=== PATIENT | male | born 1985 ===

== ENCOUNTER 2023-11-22 11:44 | Outpatient (REF) | payer OTHER, SELFPAY ==
[2023-11-22 13:42] LABS: Estimated Average Glucose 123 mg/dL; Hemoglobin A1c % 5.9 % (<6.0)
[2023-11-22 13:58] LABS: Alanine Aminotransferase 21 U/L (0-40); Albumin Level 4.1 g/dL (3.5-5.0); Alkaline Phosphatase 55 U/L (39-117); Anion Gap 12 (12-20); Aspartate Amino Transferase 19 U/L (5-37); Bilirubin Direct 0.2 mg/dL (0.0-0.5); Bilirubin Total 0.4 mg/dL (0.0-1.0); Blood Urea Nitrogen 10 mg/dL (9-16); Calcium 8.9 mg/dL (8.4-10.2); Carbon Dioxide 23 mmol/L (22-29); Chloride 108 mmol/L (96-108); Cholesterol 205 mg/dL (<200); Estimated Glomerular Filt Rate > 60; Glucose Random 87 mg/dL (60-115); HDL Cholesterol 45 mg/dL (>40); LDL Cholesterol Calculated 123 mg/dL (<100); Potassium 4.2 mmol/L (3.3-5.1); Sodium 139 mmol/L (135-145); Total Protein 7.4 g/dL (6.5-8.0); Triglycerides 189 mg/dL (<150)
[2023-11-23 04:26] LABS: HBS Num1 17.51 mIU/mL (0-7.99); HIV AB/AG Nonreactive (Nonreactive); HIV Num 1 0.05 S/CO (0.00-0.99); ~Hepatitis B Surface Antibody REACTIVE (Nonreactive)
[2023-11-23 12:44] LABS: RPR Rapid Plasma Reagin REACTIVE (NON-REACTIVE)
== END 2023-11-22 11:45 | disposition home or self-care (01) ==
LOC: HO.HHCL 11:44
PROVIDERS: Visit Provider Nurse Practitioner Primary Care
DX: Z00.00 Encounter for general adult medical examination without abnormal findings (principal); F64.9 Gender identity disorder, unspecified; R73.03 Prediabetes; Z20.2 Contact with and (suspected) exposure to infections with a predominantly sexual mode of transmission; Z13.6 Encounter for screening for cardiovascular disorders
CPT/HCPCS: 36415; 80048; 80061; 80076; 83036; 86592; 86593; 86706; 87389

== ENCOUNTER 2025-02-11 11:36 | Outpatient (REF) | payer OTHER, SELFPAY ==
[2025-02-12 13:54] LABS: CT PCR NOT DETECTED (Not Detect.); NG PCR NOT DETECTED (Not Detect.)
[2025-02-13 14:04] LABS: C. Trachomatis RNA TMA, Throat NOT DETECTED (NOT DETECTED); N. gonorrhoeae RNA TMA, Throat NOT DETECTED (NOT DETECTED)
[2025-02-13 17:39] LABS: C.Trachomatis RNA TMA, Rectal NOT DETECTED (NOT DETECTED); N.Gonorrhoeae RNA TMA, Rectal NOT DETECTED (NOT DETECTED)
== END 2025-02-11 11:37 | disposition home or self-care (01) ==
LOC: HO.HHCLNP 11:36
PROVIDERS: Visit Provider Nurse Practitioner Primary Care
DX: Z20.2 Contact with and (suspected) exposure to infections with a predominantly sexual mode of transmission (principal)
CPT/HCPCS: 87491; 87591

== ENCOUNTER 2025-05-15 12:01 | Outpatient (REF) | payer OTHER, SELFPAY ==
--- OUTSIDE RECORDS SUMMARY | 2025-05-15 11:00 | XMS_ITS | Encounter Summary ---
Author Organization [email or web address] Address [address] [facility] [address] [facility] [address] [place] [address] Care Team Providers Care Director Human Services Name Role Phone Mahogany Medrano KENDRA Primary Care Provider [phone] Reason for Visit * Reason Comments Headache Encounter Details Date Type Department Care Team (Latest Contact Info) Description 05/15/2025 11:00 AM EDT Office Visit [facility] [address] [place] [address] Carlos Herrera MD [address] [place] [address] Nonintractable headache, unspecified chronicity pattern, unspecified headache type (Primary Dx) Social History Tobacco Use Types Packs/Day Years Used Date Smoking Tobacco: Former Cigarettes Passive Smoke Exposure: Current Smokeless Tobacco: Never Tobacco Cessation:Counseling Given: Not Answered Alcohol Use Standard Drinks/Week Comments Never 0 (1 standard drink = 0.6 oz pur e alcohol) Depression Answer Date Recorded Patient Health Questionnaire-9 Score 7 08/23/2023 Patient Health Questionnaire-9 Score 7 08/23/2023 Last PHQ-9: Questionnaire Data Not on file 1 10/24/2022 Housing Stability Answer Date Recorded What is your housing situation today? I have jordan vann 02/04/[address] you li ve. Do you have problems with any of the following? None of the above 02/04/2025 Food Insecurity Answer Date Recorded Within the past 12 months, y ou worried that your food would run out before you got money to buy more: Never True 02/04/2025 Within the past 12 months,th e food you bought just didn't last and you didn't have enough money to get more: Never True Transportation Answer Date Recorded In the past 12 months, has l ack of transportation kept you from medical appts, meetings, work or from getting things needed for daily living? No 02/04/2025 Utilities Answer Date Recorded In the past 12 months, has t he electric, gas, oil or water company threatened to shut off services in your home? No 02/04/2025 Depression Answer Date Recorded Patient Health Questionnaire-2 Score 4 08/23/2023 Internet Access Answer Date Recorded Internet Access Q1 Yes 02/04/2025 Internet Access Q2 Not on file 02/04/2025 Sex and Gender Information Value Date Recorded Sex Assigned at Male 07/10/2022 10:40 AM EDT Legal Sex Female 10:40 AM EDT Gender Identity Transgender Female 07/10/2022 10 :40 AM EDT Sexual Orientation Choose not to disclose 2021 10:40 AM EDT documented as of this encounter Last Filed Vital Signs Vital Sign Reading Time Taken Comments Blood Pressure 107/72 05/15/2025 10:56 AM EDT Pulse 65 05/15/2025 10:56 AM EDT Temperature 36.7 C (98 F) 05/15/2025 10:56 AM EDT Respiratory Rate 18 05/15/2025 10:56 AM EDT Oxygen Saturation 99% 05/15/2025 10:56 AM EDT Inhaled Oxygen Concentration - - Weight 99.3 kg (219 lb) 05/15/2025 10:56 AM EDT Height - - Body Mass Index 34.3 02/11/2025 3:56 PM EDT documented in this encounter Progress Notes * Carlos Herrera MD - 05/15/2025 11:00 AM EDT Subjective History was provided by the patient. Radha Carpenter is a 40 y.o. transgender female who presents for evaluation of bitemporal VELASQUEZ, photophobia and phonophobia since yesterday. Symptom onset was about 18 hours ago. VELASQUEZ has been waxing and waning. Was able to get about 8 hours of sleep last night. Denies F/C/N/V/D. 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 States bright light is bothersome. Currently using a vape product, but intends to quit. Denies any new medications. Denies any recent travel or unusual activity change. She stoppedtaking her Estradiol few months ago due to increased appetite. Had been on this medication for manyyears. Wanted to see if her appetite would change. Currently has an upcoming appointment with PCP next week. She reports an unusual symptom of epigastric tenderness when she walks on her heels. Symptom is alleviated when she tip-toe walks. Objective Vitals: 05/15/25 1056 BP: 107/72 BP Location: Right arm Patient Position: Sitting BP Cuff Size: Adult Pulse: 65 Resp: 18 Temp: 98 ??F (36.7 ??C) TempSrc: Temporal SpO2: 99% Weight: 219 lb (99.3 kg) Physical Exam Vitals reviewed. Constitutional: General: She is not in acute distress. Appearance: Normal appearance. She is not ill-appearing, toxic-appearing or diaphoretic. HENT: Head: Normocephalic and atraumatic. Right Ear: External ear normal. Left Ear: External ear normal. Nose: Nose normal. Mouth/Throat: Mouth: Mucous membranes are moist. Pharynx: Oropharynx is clear. Eyes: Extraocular Movements: Extraocular movements intact. Conjunctiva/sclera: Conjunctivae normal. Cardiovascular: Rate and Rhythm: Normal rate and regular rhythm. Heart sounds: Normal heart sounds. Pulmonary: Effort: Pulmonary effort is normal. Breath sounds: Normal breath sounds. Abdominal: General: Abdomen is flat. There is no distension. Palpations: Abdomen is soft. Tenderness: There is no abdominal tenderness. There is no right CVA tenderness, left CVA tenderness, guarding or rebound. Musculoskeletal: General: Normal range of motion. Cervical back: Normal range of motion and neck supple. Skin: General: Skin is warm and dry. Neurological: General: No focal deficit present. Mental Status: She is alert and oriented to person, place, and time. Cranial Nerves: No cranial nerve deficit. Sensory: No sensory deficit. Motor: No weakness. Coordination: Coordination normal. Gait: Gait normal. Psychiatric: Mood and Affect: Mood normal. Behavior: Behavior normal. Galen was seen today for headache. Diagnoses and all orders for this visit: Nonintractable headache, unspecified chronicity pattern, unspecified headache type (Primary) - ibuprofen 600 MG tablet; Take 1 tablet (600 mg) by mouth every 8 (eight) hours if needed for moderate pain or headaches for up to 10 days. Patient presents to [facility] with bitemporal VELASQUEZ with photophobia/phonophobia started yesterday Tension vs migraine VELASQUEZ Non-focal, normal neurologic exam with intact CN 2-12 Motor strengths 5/5 throughout Also reports epigastric tenderness aggravated by heel walking No clinical evidence of acute abdomen Has not tried any OTC medications Trial of Ibuprofen 600mg PO TID PRN Monitor any worsening of abdominal symptoms Potential adverse effects of the medication reviewed Advised to contact the clinic if persistent or worsening symptoms Indications for UC/ER use reviewed documented in this encounter Plan of Treatment Upcoming Encounters Date Type Department Care Team (Late st Contact Info) Description 05/22/2025 9:00 AM EDT Office Visit [facility] MED[facility]INE [address] [place] [phone] Mahogany Medrano ANP [address] [place] [address] documented as of this encounter Visit Diagnoses Diagnosis Nonintractable headache, unspecified chronicity pattern, unspecified headache type- Primary documented in this encounter Additional Health Concerns Assessment Noted Time PHQ-9 Depression Total Score: 7 08/23/20 23 4:33 PM EST documented as of this encounter Care Teams Director Human Services Relationship Specialty Start Date End Date Mahogany Medrano ANP [address] [place] [phone] PCP - General Family Medicine 11/29/21 documented as of this encounter
--- OUTSIDE RECORDS SUMMARY | 2025-05-15 12:42 | XMS_ITS | Encounter Summary ---
Author Organization [employer] Address [address] [facility] [address] [facility] [address] [place] [address] Care Team Providers Care Model Builder Name Role Phone Mahogany Medrano KENDRA Primary Care Provider [phone] Encounter Details Date Type Department Care Team (Late st Contact Info) Description 09/06/2023 Abstract [facility] ADULT DENTAL [address] [place] [address] Jennifer Chowdary [address] [place] [address] Social History Tobacco Use Types Packs/Day Years Used Date Smoking Tobacco: Former Cigarettes Passive Smoke Exposure: Current Smokeless Tobacco: Never Alcohol Use Standard Drinks/Week Comments Never 0 (1 standard drink = 0.6 oz pur e alcohol) Depression Answer Date Recorded Patient Health Questionnaire-9 Score 7 08/23/2023 Patient Health Questionnaire-9 Score 7 08/23/2023 Last PHQ-9: Questionnaire Data Not on file 1 10/24/2022 Housing Stability Answer Date Recorded What is your housing situation today? I have jordan vann 06/26/[address] you li ve. Do you have problems with any of the following? None of the above 06/26/2023 Food Insecurity Answer Date Recorded Within the past 12 months, y ou worried that your food would run out before you got money to buy more: Never True 06/26/2023 Within the past 12 months,th e food you bought just didn't last and you didn't have enough money to get more: Never True Transportation Answer Date Recorded In the past 12 months, has l ack of transportation kept you from medical appts, meetings, work or from getting things needed for daily living? No 06/26/2023 Utilities Answer Date Recorded In the past 12 months, has t he electric, gas, oil or water [employer] threatened to shut off services in your home? No 06/26/2023 Depression Answer Date Recorded Patient Health Questionnaire-2 Score 4 08/23/2023 Sex and Gender Information Value Date Recorded Sex Assigned at Male 07/10/2022 10:40 AM EDT Legal Sex Female 10:40 AM EDT Gender Identity Transgender Female 07/10/2022 10 :40 AM EDT Sexual Orientation Choose not to disclose 2021 10:40 AM EDT documented as of this encounter Plan of Treatment Upcoming Encounters Date Type Department Care Team (Late st Contact Info) Description 05/22/2025 9:00 AM EDT Office Visit [facility] MEDICINE [address] [place] [phone] Mahogany Medrano ANP [address] [place] [address] documented as of this encounter Visit Diagnoses Not on filedocumented in this encounter Additional Health Concerns Assessment Noted Time PHQ-9 Depression Total Score: 7 08/23/20 23 4:33 PM EST documented as of this encounter Care Teams Model Builder Relationship Specialty Start Date End Date Mahogany Medrano ANP [address] [place] [phone] PCP - General Family Medicine 11/29/21 documented as of this encounter
--- OUTSIDE RECORDS SUMMARY | 2025-05-15 12:42 | XMS_ITS | Encounter Summary ---
Author Organization [employer] Address [address] [facility] [address] [facility] [address] [place] [address] Care Team Providers Care Washing And Screening Plant Supervisor Name Role Phone Mahogany Medrano KENDRA Primary Care Provider [phone] Encounter Details Date Type Department Care Team (Late st Contact Info) Description 09/04/2023 Abstract [facility] AD[facility] [address] [place] [address] Lamont Rodríguez DDS [address] [place] [address] Social History Tobacco Use Types Packs/Day Years [...] Description 05/22/2025 9:00 AM EDT Office Visit [facility] MEDICINE [address] [place] [phone] Mahogany Medrano ANP [address] [place] [address] documented as of this encounter Visit Diagnoses Not on filedocumented in this encounter Additional Health Concerns Assessment Noted Time PHQ-9 Depression Total Score: 7 08/23/20 23 4:33 PM EST documented as of this encounter Care Teams Washing And Screening Plant Supervisor Relationship Specialty Start Date End Date Mahogany Medrano ANP [address] [place] [phone] PCP - General Family Medicine 11/29/21 documented as of this encounter
--- OUTSIDE RECORDS SUMMARY | 2025-05-15 12:42 | XMS_ITS | Encounter Summary ---
Author Organization [employer] Address [address] [facility] [address] [place] [address] Care Team Providers Care Inspection Supervisor Name Role Phone Mahogany Medrano Primary Care Provider [phone] Reason for Visit * Reason Onset Date Comments Appointment Request 09/25/2023 Encounter Details Date Type Department Care Team ([facility] st Contact Info) Description 09/25/2023 Telephone [facility] MEDICINE [address] [place] [address] Mahogany Medrano ANP [address] [place] [address] Appointment Request Social History Tobacco Use Types Packs/Day Years [...] AM EDT documented as of this encounter Miscellaneous Notes * Telephone Encounter - Adelavazquez Jamison Clarke - 09/25/2023 10:58 AM EST Tc from pt requesting an appt with provider to speak about a New medication that is being advised by therapist to be prescribed to patient called COZAC. Please contact pt @ [phone] Turkmen Speaker documented in this encounter Plan of Treatment Upcoming Encounters Date Type Department Care Team (Late st Contact Info) Description 05/22/2025 9:00 AM EDT Office Visit [facility] MEDICINE [address] [place] [address] Mahogany Medrano ANP [address] [place] [address] documented as of this encounter Visit Diagnoses Not on filedocumented in this encounter Additional Health Concerns Assessment Noted Time PHQ-9 Depression Total Score: 7 08/23/20 23 4:33 PM EST documented as of this encounter Care Teams Inspection Supervisor Relationship Specialty Start Date End Date Mahogany Medrano ANP [address] [place] [address] PCP - General Family Medicine 11/29/21 documented as of this encounter
--- OUTSIDE RECORDS SUMMARY | 2025-05-15 12:42 | XMS_ITS | Encounter Summary ---
Author Organization [employer] [facility] Address [address] [facility] 7[address] [place] [address] Care Team Providers Care Cable Installer Repairer Name Role Phone Mahogany Medrano Primary Care Provider [phone] Reason for Visit * Reason Comments Med Refill Encounter Details Date Type Department Care Team (Late Contact Info) Description 2023 Refill [facility] MEDICINE [address] [place] [phone] Mahogany Medrano ANP [address] [place], [place] [phone] Social History Tobacco Use Types Packs/Day Years Used Date Smoking Tobacco: Some Days Cigarettes Passive Smoke Exposure: Current Smokeless Tobacco: Never Alcohol Use Standard Drinks/Week Comments Never 0 (1 standard drink = 0.6 oz pur e alcohol) Sex and Gender Information Value Date Recorded Sex Assigned at Male 07/10/2022 10:40 AM EDT Legal Sex Female 10:40 AM EDT Gender Identity Transgender Female 07/10/2022 10 :40 AM EDT Sexual Orientation Choose not to disclose 2021 10:40 AM EDT COVID-19 Exposure Response Date Recorded In the last 10 days, have yo u been in contact with someone who was confirmed or suspected to have Coronavirus/COVID-19? No / Unsure 2023 9:21 AM EDT documented as of this encounter Plan of Treatment Upcoming Encounters Date Type Department Care Team (Late Contact Info) Description 05/22/2025 9:00 AM EDT Office Visit [facility] MEDICINE [address] [place] [address] [phone] Mahogany Medrano ANP [address] [place], [place] [phone] documented as of this encounter Visit Diagnoses Not on filedocumented in this encounter Care Teams Cable Installer Repairer Relationship Specialty Start Date End Date Mahogany Medrano ANP [address] [place] [address] PCP - General Family Medicine 11/29/21 documented as of this encounter
--- OUTSIDE RECORDS SUMMARY | 2025-05-15 12:42 | XMS_ITS | Encounter Summary ---
Author Organization [employer] Address [address] [place] [address] Care Team Providers Care Group Billing Coordinator Name Role Phone Mahogany Medrano EKNDRA Primary Care Provider [phone] Encounter Details Date Type Department Care Team (Late st Contact Info) Description 10/04/2023 Abstract [facility] ADULT DENTAL [address] [place] [address] Jennifer Chowdary [address] [place] [address] Social History Tobacco Use Types Packs/Day Years [...] t he electric, gas, oil or water [employer] threatened to shut off services in your [...] Description 05/22/2025 9:00 AM EDT Office Visit [facility] MEDICINE [address] [place] [phone] Mahogany Medrano ANP [address] [place] [address] documented as of this encounter Visit Diagnoses Not on filedocumented in this encounter Additional Health Concerns Assessment Noted Time PHQ-9 Depression Total Score: 7 08/23/20 23 4:33 PM EST documented as of this encounter Care Teams Group Billing Coordinator Relationship Specialty Start Date End Date Mahogany Medrano ANP [address] [place] [phone] PCP - General Family Medicine 11/29/21 documented as of this encounter
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
--- OUTSIDE RECORDS SUMMARY | 2025-05-15 12:43 | XMS_ITS | Encounter Summary ---
Author Organization [employer] Address [address] [place] [address] Care Team Providers Care Regulatory Affairs Strategy Specialist Name Role Phone Mahogany Medrano KENDRA Primary Care Provider [phone] Encounter Details Date Type Department Care Team (Late st Contact Info) Description 10/09/2023 Abstract [facility] [address] [place] [address] Jennifer Chowdary [address] [place] [address] Social History Tobacco Use Types Packs/Day Years [...] t he electric, gas, oil or water [employer] threatened to shut off services in your [...] Description 05/22/2025 9:00 AM EDT Office Visit [facility] [address] [place] [phone] Mahogany Merdano ANP [address] [place] [address] documented as of this encounter Visit Diagnoses Not on filedocumented in this encounter Additional Health Concerns Assessment Noted Time PHQ-9 Depression Total Score: 7 08/23/20 23 4:33 PM EST documented as of this encounter Care Teams Regulatory Affairs Strategy Specialist Relationship Specialty Start Date End Date Mahogany Medrano ANP [address] [place] [phone] PCP - General Family Medicine 11/29/21 documented as of this encounter
--- OUTSIDE RECORDS SUMMARY | 2025-05-15 12:43 | XMS_ITS | Encounter Summary ---
Author Organization [employer] Address [address] [place] [address] Care Team Providers Care Flight Communications Officer Name Role Phone Mahogany Medrano KENDRA Primary Care Provider [phone] Encounter Details Date Type Department Care Team (Late st Contact Info) Description 10/08/[address] [facility] [address] [place] [address] Jennifer Chowdary [address] [place] [address] Social History Tobacco Use Types Packs/Day Years [...] t he electric, gas, oil or water [employer] threatened to shut off services in [...] Description 05/22/2025 9:00 AM EDT Office Visit [facility] [address] [place] [phone] Mahogany Medrano ANP [address] [place] [address] documented as of this encounter Visit Diagnoses Not on filedocumented in this encounter Additional Health Concerns Assessment Noted Time PHQ-9 Depression Total Score: 7 08/23/20 23 4:33 PM EST documented as of this encounter Care Teams Flight Communications Officer Relationship Specialty Start Date End Date Mahogany Medrano ANP [address] [place] [phone] PCP - General Family Medicine 11/29/21 documented as of this encounter
--- OUTSIDE RECORDS SUMMARY | 2025-05-15 12:43 | XMS_ITS | Encounter Summary ---
Author Organization [employer] Address [address] [place] [address] Care Team Providers Care Cloud Operations Engineer Name Role Phone Mahogany Medrano KENDRA Primary Care Provider [phone] Encounter Details Date Type Department Care Team (Latest Contact Info) Description 05/15/2025 Travel Social History Tobacco Use Types Packs/Day Years [...] Description 05/22/2025 9:00 AM EDT Office Visit [facility] [address] [place] [address] Mahogany Medrano ANP [address] [place] [address] documented as of this encounter Visit Diagnoses Not on filedocumented in this encounter Additional Health Concerns Assessment Noted Time PHQ-9 Depression Total Score: 7 08/23/20 23 4:33 PM EST documented as of this encounter Care Teams Cloud Operations Engineer Relationship Specialty Start Date End Date Maohgany Medrano ANP [address] [place] [phone] PCP - General Family Medicine 11/29/21 documented as of this encounter
[2025-05-18 03:56] LABS: HIV Num 1 0.03 S/CO (0.00-0.99); ~HepC Num1 0.21 S/CO (0.00-0.79); ~Hepatitis C Antibody Nonreactive (Nonreactive)
[2025-05-19 13:53] LABS: Rapid Plasma Reagin Ab Titer 1:2
== END 2025-05-15 12:02 | disposition home or self-care (01) ==
LOC: HO.HHCL 12:01
PROVIDERS: PCP Nurse Practitioner Primary Care; Visit Provider Nurse Practitioner Primary Care
DX: Z11.3 Encounter for screening for infections with a predominantly sexual mode of transmission (principal); Z11.59 Encounter for screening for other viral diseases; Z11.4 Encounter for screening for human immunodeficiency virus [HIV]
CPT/HCPCS: 36415; 86592; 86593; 86803; 87389